=== PATIENT | male | born 1965 | race Caucasian/White ===

== ENCOUNTER 2025-01-02 09:14 | Outpatient (REF) | payer OTHER, SELFPAY ==
--- NOTE | 2025-01-02 | EMG_ITS ---
Chief complaint: Pain in upper extremities Reason for referral:M79.622 pain in right upper arm, M79.622 pain in left upper arm Referred by: Eloisa Salinas MD Procedure done: NCS and EMG of bilateral upper extremities Bilateral median and ulnar motor studies were performed. Bilateral median and ulnar mixed sensory studies, median and lateral antecubital brachial sensory studies and radial sensory studies were performed. EMG examination was performed. Findings: Right median motor distal latencies was mildly prolonged. Bilateral median mixed distal latencies were mildly prolonged. Impression: Mild bilateral median neuropathy across carpal tunnel Codin [address]62 x2 MTDD
--- OUTSIDE RECORDS SUMMARY | 2025-01-02 09:59 | XMS_ITS | Encounter Summary ---
Author Organization [facility] Address [address] [place] [address] Care Team Providers Care Gambling Box Person Name Role Phone Pcp, No Primary Care Provider Unavailabl e Encounter Details Date Type Department Care Team (Late st Contact Info) Description 06/28/2015 Scanned Document [address] [id number] Provider, Generic Social History Tobacco Use Types Packs/Day Years Used Date Smoking Tobacco: Some Days Cigarettes Smokeless Tobacco: Never Comments:No data on allscrip ts Alcohol Use Standard Drinks/Week Comments Yes 4 (1 standard drink = 0.6 oz pur e alcohol) drinking beer only on weekends Sex and Gender Information Value Date Recorded Sex Assigned at Not on file Legal Sex Male 1:18 PM EDT Gender Identity Not on file Sexual Orientation Not on file Occupation Industry Job Start Date Job End Date Not on file Not on file Not on file Not on file documented as of this encounter Plan of Treatment Not on file documented as of this encounter Visit Diagnoses Not on filedocumented in this encounter Care Teams Gambling Box Person Relationship Specialty Start Date End Date Pcp, No PCP - General General Medicine 04/25/15 documented as of this encounter
--- OUTSIDE RECORDS SUMMARY | 2025-01-02 09:59 | XMS_ITS | Encounter Summary ---
Author Organization [facility] Address [address] [place] [address] Care Team Providers Care [employer] Supervisor Name Role Phone Jim Anderson MD Primary Care Provider [phone] Encounter Details Date Type Department Care Team ([facility] st Contact Info) Description 11/20/2024 Results Follow-Up Adult Medicine [address] [phone] Jim Anderson MD [address] [place] [address] Social History Tobacco Use Types Packs/Day Years Used Date Smoking Tobacco: Every Day Cigarettes Passive Smoke Exposure: Current Smokeless Tobacco: Former Alcohol Use Standard Drinks/Week Comments No 0 (1 standard drink = 0.6 oz pur e alcohol) Housing Instability Answer Date Recorde d Are you worried that in the next 2 months you may not have stable housing? Patient declined 07/28/2024 Food Access & Nutrition Answer Date Rec orded Do you have access to a vari ety of food including fruits and vegetables? Patient declined 07/28/2024 Health Literacy Answer Date Recorded How often do you need to hav e someone help you when you read instructions, pamphlets, or other written material from your doctor or pharmacy? Patient declined 07/28/2024 Caregiver: How often do you need to have someone help you when you read instructions, pamphlets, or other written material from your doctor or pharmacy? Not on file 025 Financial Risk Answer Date Recorded How hard is it for you to pa y for the very basics like food, housing, medical care, and air conditioning / heating? Patient declined 07/28/2024 Transportation Answer Date Recorded Has the lack of transportati on kept you from meetings, work, or from getting things needed for daily living? Patient declined 07/28/2024 Has the lack of transportati on kept you from medical appointments or from getting medications? Patient declined 07/28/2024 Social Isolation Answer Date Recorded How often do you feel lonely or isolated from those around you? Patient declined 07/28/2024 Food Risk Answer Date Recorded Within the past 12 months we worried whether our food would run out before we got money to buy more. Not asked 07/28/2024 Within the past 12 months th e food we bought just didn't last and we didn't have money to get more. Never true 07/28/2024 Dependent Care Answer Date Recorded Do you need help finding or paying for care for your loved ones. For example, child support case officer or elderly care for an older adult? Patient declined 07/28/2024 Education Answer Date Recorded Do you think completing more education or training, like finishing a GED, going to college, or learning a trade, would be helpful for you? Patient declined 07/28/2024 Employment and Income Answer Date Recor ded During the last four weeks, have you been actively looking for work? Patient declined 07/28/2024 Living Situation Answer Date Recorded What is your living situation? Unrecognized valu e 07/28/2024 Sex and Gender Information Value Date Recorded Sex Assigned at Male 06/20/2024 12:01 PM EDT Legal Sex Male 10:26 AM EST Gender Identity Male 06/20/2024 12:01 PM EDT Sexual Orientation Not on file documented as of this encounter Plan of Treatment Upcoming Encounters Date Type Department Care Team (Late st Contact Info) Description 03/23/2025 8:30 AM EST Office Visit Pulmonology - [address] [place] [address] Agnieszka Beck MD [address] [place] [phone] 06/06/2025 8:30 AM EDT Office Visit Adult Medicine [address], [place] [phone] Jim Anderson MD [address] [place] [address] 11/21/2025 9:00 AM EDT Office Visit Adult Medicine [address] [phone] Jim Anderson MD [address] [place] [address] documented as of this encounter Visit Diagnoses Not on filedocumented in this encounter Additional Health Concerns Assessment Noted Time PHQ-9 Depression Total Score: 0 11/18/19 8:14 AM EDT documented as of this encounter Care Teams [employer] Supervisor Relationship Specialty Start Date End Date Jim Anderson MD [address] [place] [address] PCP - General Internal Medicine 03/03/24 documented as of this encounter
--- OUTSIDE RECORDS SUMMARY | 2025-01-02 09:59 | XMS_ITS | Clinical Summary ---
Author Organization [address] Address [address] [place] [phone] Phone Care Team Providers Care Door Repairman Name Role Phone Jim Anderson MD Primary Care Provider [phone] Allergies Active Allergy Reactions Criticality Noted Date Comments Bupropion Dermatitis,Unknown,Hives Medium 05/08/2015 Bupropion Hcl Itching 05/18/2007 zyban Medications ciclopirox (PENLAC) 8 % solution Apply topically to affected nails for 7 days. On day 7, use alcohol wipe to remove solution. Repeat process x 8 weeks. 3 Active miscellaneous medical supply [facility] CPAP Historical (HISTORICAL CPAP)- by Nasal route at bedtime. [employer]-pressure 9 Active FREESTYLE LANCETS [facility] Check daily 2 Active blood sugar diagnostic (FreeStyle Lite Strips) test strip Test daily 2 Active ibuprofen (ADVIL,MOTRIN) 800 mg tablet Take 1 tablet (800 mg total) by mouth 3 (three) times a day if needed for mild pain (pain). 60 tablet 5 Active acetaminophen (TYLENOL 8 HOUR) 650 mg 8 hr tablet Take 1 tablet (650 mg total) by mouth every 8 (eight) hours if needed for mild pain. Do not crush, chew, or split. 60 tablet 5 Active fluticasone propionate (FLONASE) 50 mcg/actuation nasal spray Administer 2 sprays into each nostril 1 (one) time each day. Shake liquid 48 g 5 Active atorvastatin (LIPITOR) 20 mg tablet Take 1 tablet (20 mg total) by mouth 1 (one) time each day. 90 tablet 2 5 Active hydroCHLOROthia zide (HYDRODIURIL) 25 mg tablet Take 1 tablet (25 mg total) by mouth 1 (one) time each day. 90 tablet 1 5 Active lisinopriL (PRINIVIL,ZESTR IL) 5 mg tablet Take 1 tablet (5 mg total) by mouth 1 (one) time each day. 90 tablet 1 5 Active omeprazole (PriLOSEC) [address] capsule Take 1 capsule (20 mg total) by mouth 1 (one) time each day. 90 capsule 1 5 Active Active Problems Problem Noted Date Diagnosed Date Morbid obesity with BMI of 4 0.0-44.9, adult ([facility] V24, [facility] V28) 02/01/2024 Grief at loss of child 02/01/2024 Overview (02/01/2024): Son committed suicide 2020 CKD (chronic kidney disease) stage 3, GFR 30-59 ml/min ([facility] V24, [facility] V28) 02/09/2022 Chronic right shoulder pain 11/19/2020 Type II diabetes mellitus wi th renal manifestations ([facility] V24, [facility] V28) 06/03/2020 H. pylori infection 12/13/2019 Morbid obesity ([facility] V24, [facility] V28) 2014 Gastroesophageal reflux disease 06/21/2012 Sleep apnea 08/16/2007 Benign essential hypertension 10/22/2006 Atopic rhinitis 10/22/2006 Overview (03/31/2024): Frequent ear infections, flonase helps helped with flonase Encounters Date Type Department Care Team Description 11/20/2024 Results Follow-Up Adult Medicine [address] [phone] Jim Anderson MD 11/20/2024 Results Follow-Up Adult Medicine [address] [place] [phone] Jim Anderosn MD 11/17/2024 8:00 AM EDT Office Visit Adult Medicine [address] [phone] Jim Anderson MD Routine physical examination (Primary Dx); Screening for malignant neoplasm of prostate; Type 2 diabetes mellitus with stage 3a chronic kidney disease, without long-term current use of insulin ([facility] V24, [facility] V28); Stage 3a chronic kidney disease ([facility] V24, [facility] V28); High cholesterol; Sore throat; Post-nasal drip from Last 3 Months Immunizations Immunization Administration Dates Next Due Influenza Quadravalent, MDCK , 0.5ml, preservative free (Flucelvax) 6mo and older 11/15/2022,12/14/2021,11/01/2019 Influenza Quadrivalent, 0.5m l, preservative free (Fluarix; FluLaval; Fluzone) ages 6mo and older (Afluria) 3yo and older 12/05/2018,11/21/2017 Influenza Quadrivalent, with preservative (Fluzone; Afluria) 6mo and older 12/30/2009 Influenza trivalent, 0.5mL, preservative free (Fluarix; FluLaval; Fluzone) ages 6mo and older (Afluria) 3 years and older 11/21/2017,12/03/2016,12/27/2015,11/03,01/18/2011,12/15/2007 Influenza trivalent, MDCK, 0 .5mL, preservative free (Flucelvax) 6mo and older 11/27/2023 Influenza trivalent, recombi nant, 0.5mL, preservative free (Flublok) 9yo and older 11/11/2024 Influenza trivalent, with pr eservative (Fluzone; Afluria) 6mo and older 11/19/2020,11/04/2011,01/18/2011,12/30,12/15/2007 Influenza, Unspecified 12/14/2021,2018,12/03/2016,12/26 Moderna SARS-CoV-2 COVID-19, mRNA, LNP-S, preservative free 05/01/2020 Pfizer (ages 12 & older) Biv alent, COVID-19 12/14/2021 Pneumococcal polysaccharide 23 valent (Pneumovax 23) 2yo and older 12/27/2015 Pneumococcal, Unspecified 12/27/2015 Td Tetanus diptheria (Tdvax) 7yo and older 09/14/2012 Td Tetanus diptheria, preser vative free (Tenivac) 7yo and older 09/14/2012 Tdap Tetanus diptheria acell ular pertussis (Boostrix; Adacel) 7yo and older 09/22/2017,05/18/2007 Zoster recombinant (Shingrix ) 19yo and older 03/12/2019,12/05/2018 Surgical History Surgery Date Site/Laterality Comments COLONOSCOPY 09/21/2017 PROCEDURE: HISTORICAL COLONOSCOPY; COMMENT: 5 mm ascending colon polyp: tubular adenoma. Medical History Medical History Date Comments Allergic rhinitis, cause unspecified 10/22/2006 DX:Allergic rhinitis, cause unspecified; COMMENT: helped with flonase Essential hypertension, benign 10/22/2006 D X:Essential hypertension, benign Morbid obesity (CMS/HCC V24, CMS/HCC V28) 12/25/2014 DX:Morbid obesity ([facility]) H. pylori infection 12/13/2019 DX:H. pylori infection Family History Medical History Relation Name Comments No Known Problems Brother x 4 health y sisters Hypertension Father seizures, [place] x 2 Diabetes Mother HTN, stroke x 2 Leukemia Other nephew No Known Problems Sister No Known Problems Son 1 adopted No Known Problems Son 2 step son No Known Problems Son 3 Depression Son 4 Lung cancer Neg Hx Relation Name Status Comments Brother Alive Father Mother Other nephew Alive Sister Alive Son 1 Alive Son 2 Alive Son 3 Alive Son 4 Social History Tobacco Use Types Packs/Day Years Used Date Smoking Tobacco: Every Day Cigarettes Passive Smoke Exposure: Current Smokeless Tobacco: Former Tobacco Cessation:Ready to Q uit: Not Asked; Counseling Given: Not Answered Alcohol Use Standard Drinks/Week Comments No 0 [...] care for your loved ones. For example, director of early childhood education or elderly care for an older adult? [...] PM EDT Sexual Orientation Not on file Obstetrics History Last Filed Vital Signs Vital Sign Reading Time Taken Comments Blood Pressure 130/72 11/17/2024 8:01 AM EDT Pulse 76 11/17/2024 8:01 AM EDT Temperature 36.5 C (97.7 F) 11/17/2024 8:01 AM EDT Respiratory Rate 16 11/17/2024 8:01 AM EDT Oxygen Saturation 96% 11/17/2024 8:01 AM EDT Inhaled Oxygen Concentration - - Weight 98.4 kg (217 lb) 11/17/2024 8:01 AM EDT Height 162.6 cm (5' 4 ) 11/17/2024 8:01 AM EDT Body Mass Index 37.25 11/17/2024 8:01 AM EDT Plan of Treatment Upcoming Encounters Date Type Department Care Team (Late st Contact Info) Description 03/23/2025 8:30 AM EST Office Visit Pulmonology - [address] [place] [phone] Agnieszka Beck MD [address] [place] [phone] 06/06/2025 8:30 AM EDT Office Visit Adult Medicine [address] [phone] Jim Anderson MD [address] [place] [phone] 11/21/2025 9:00 AM EDT Office Visit Adult [address] [phone] Jim Anderson MD [address] [place] [address] Health Maintenance Due Date Last Done Comments Diabetes: Annual Foot Exam 1976 Diabetes: Annual Retina Eye Exam 1976 Hepatitis B Vaccines (1 of 3 - 19+ 3-dose series) 1985 RSV Immunization Adult Patients (1 - Risk 50-74 years 1-dose series) 2016 Pneumococcal Vaccine: 50+ Years (2 of 2 - PCV) 12/26/2016 12/27/2015, 12/27/2015 COVID-19 Vaccine (8 - Moderna risk season) 2025 11/11/2024, 11/27/2023, 11/15/2022, Additional history exists Diabetes: Blood Sugar Control Test (HGBA1C) 05/17/2025 11/17/2024, 05/15/2024, 04/23/2023 Lung Cancer Screening (Low Dose CT) 06/22/2025 06/22/2024, 03/20/2022 Diabetes: Annual GFR (Glomerular Filtration Rate) 07/28/2025 07/28/2024, 04/23/2023 Hypertension/CHF/CAD Annual BMP Blood Test 07/28/2025 07/28/2024, 04/23/2023 Social Influencers of Health Screening 07/28/2025 07/28/2024 Diabetes: Annual Urine Albumin-Creatinine Ratio (uACR) 11/17/2025 11/17/2024, 05/15/2024, 09/21/2022 DTaP,Tdap,and Td Vaccines (5 - Td or Tdap) 09/23/2027 09/22/2017, 09/14/2012, 09/14/2012, Additional history exists Colorectal Cancer Screening: Colonoscopy 09/30/2028 10/01/2023 Cholesterol Screening (Lipid Panel) 07/28/2029 07/28/2024, 04/23/2023 HIV Screening Completed 07/22/2013 Hepatitis C Screening Completed 07/22/2013 Zoster Vaccines Completed 03/12/2019, 12/05/2018 Influenza Vaccine Completed 11/11/2024, , 11/15/2022, Additional history exists Depression Screening Completed 11/17/2024 HIB Vaccines Aged Out No longer eligi ble based on patient's age to complete this topic HPV Vaccines Aged Out No longer eligi ble based on patient's age to complete this topic Hepatitis A Vaccines Aged Out No long er eligible based on patient's age to complete this topic IPV Vaccines Aged Out No longer eligi ble based on patient's age to complete this topic MMR Vaccines Aged Out No longer eligi ble based on patient's age to complete this topic Meningococcal ACWY Vaccine Aged Out N o longer eligible based on patient's age to complete this topic Meningococcal B Vaccine Aged Out No l onger eligible based on patient's age to complete this topic RSV Immunization Patients Under 20 months Aged Out No longer eligible based on patient's age to complete this topic Varicella Vaccines Aged Out No longer eligible based on patient's age to complete this topic Procedures Procedure Name Priority Date/Time Associated Diagnosis Comments CBC WITH AUTO DIFFERENTIAL Routine 11/17/2024 8:47 AM EDT Routine physical examination CBC AND DIFFERENTIAL Routine 11/17/2024 8:47 AM EDT Routine physical examination HEMOGLOBIN A1C Routine 11/17/2024 8:47 AM EDT Type 2 diabetes mellitus with stage 3a chronic kidney disease, without long-term current use of insulin ([facility] V24, [facility] V28) MICROALBUMIN CREATININE URINE RATIO Routine 11/17/2024 8:47 AM EDT Type 2 diabetes mellitus with stage 3a chronic kidney disease, without long-term current use of insulin ([facility] V24, [facility] V28) PROSTATE SPECIFIC ANTIGEN SCREEN Routine 11/17/2024 8:47 AM EDT Screening for malignant neoplasm of prostate COMPREHENSIVE METABOLIC PANEL Routine 07/28/2024 11:21 AM EDT Type 2 diabetes mellitus with other diabetic kidney complication, without long-term current use of insulin ([facility] V24, [facility] V28) Benign essential hypertension Stage 3 chronic kidney disease, unspecified whether stage 3a or 3b CKD ([facility] V24, [facility] V28) Encounter for long-term (current) use of medications LIPID PANEL WITH REFLEX TO DIRECT LDL Routine 07/28/2024 11:21 AM EDT Type 2 diabetes mellitus with other diabetic kidney complication, without long-term current use of insulin ([facility] V24, [facility] V28) High cholesterol CT LUNG SCREENING Routine 06/22/2024 10: 10 AM EDT Encounter for screening for malignant neoplasm of respiratory organs Nicotine dependence, cigarettes, uncomplicated COLONOSCOPY Routine 10/01/2023 HEPATITIS C SCREENING Routine 07/22/2013 HIV SCREENING Routine 07/22/2013 from Last 3 Months or Most Recently Relevant to Health Maintenance Results * Prostate specific antigen screen (11/17/2024 8:47 AM EDT) PSA 1.41 0.00 - 4.00 ng/mL LAB CHEMISTRY METHOD 11/17/2024 11:02 AM EDT [facility] Blood Venous blood specimen / Unknown Venipuncture / Unknown 11/17/2024 8:47 AM EDT 11/17/2024 8:47 AM EDT Narrative [facility] - 11/17/2024 11:02 AM EDT The Siemens Advia Centaur Chemiluminescent Immunoassay is used. Results obtained with different assay methods or kits cannot be used interchangeably. Results cannot be interpreted as absolute evidence of the presence or absence of malignant disease. us Jim Anderson MD LAB BLOOD ORDERABLES Final Resu lt [facility] [address] [place] [address], * (ABNORMAL) CBC auto differential (11/17/2024 8:47 AM EDT) WBC 7.1 4.8 - 10.8 K/mcL LAB HEMETOLOGY METHOD 11/17/2024 10:56 AM EDT [facility] RBC 4.50 4.50 - 5.50 M/mcL LAB HEMETOLOGY METHOD 11/17/2024 10:56 AM EDT [facility] Hemoglobin 13.8 13.5 - 17.5 g/dL LAB HEMETOLOGY METHOD 11/17/2024 10:56 AM [facility] Hematocrit 41.2(L) 42.0 - 54.0 % LAB HEMETOLOGY METHOD 11/17/2024 10:56 AM [facility] MCV 91.6 79.0 - 98.0 FL LAB HEMETOLOGY METHOD 11/17/2024 10:56 AM [facility] MCH 30.7 27.0 - 32.0 pcg LAB HEMETOLOGY METHOD 11/17/2024 10:56 AM [facility] MCHC 33.5 32.0 - 37.0 g/dL LAB HEMETOLOGY METHOD 11/17/2024 10:56 AM [facility] RDW 12.9 11.0 - 15.0 % LAB HEMETOLOGY METHOD 11/17/2024 10:56 AM [facility] Platelets 197 130 - 400 K/mcL LAB HEMETOLOGY METHOD 11/17/2024 10:56 AM [facility] MPV 10.6 7.0 - 11.0 FL LAB HEMETOLOGY METHOD 11/17/2024 10:56 AM [facility] NRBC 0.0 <1.0 % LAB HEMETOLOGY METHOD 11/17/2024 10:56 AM [facility] NRBC Absolute 0.00 <0.10 K/mcL LAB HEMETOLOGY METHOD 11/17/2024 10:56 AM [facility] Neutrophils Relative 59.2 % LAB HEMETOLOGY METHOD 11/17/2024 10:56 AM [facility] Lymphocytes Relative 24.6 % LAB HEMETOLOGY METHOD 11/17/2024 10:56 AM [facility] Monocytes Relative 9.1 % LAB HEMETOLOGY METHOD 11/17/2024 10:56 AM [facility] Eosinophils Relative 6.1 % LAB HEMETOLOGY METHOD 11/17/2024 10:56 AM EDT [facility] Basophils Relative 0.7 % LAB HEMETOLOGY METHOD 11/17/2024 10:56 AM EDT [facility] Immature Granulocytes Relative 0.3 % LAB HEMETOLOGY METHOD 11/17/2024 10:56 AM EDT [facility] Neutrophils Absolute 4.19 1.50 - 7.00 K/mcL LAB HEMETOLOGY METHOD 11/17/2024 10:56 AM EDT [facility] Lymphocytes Absolute 1.74 1.00 - 5.00 K/mcL LAB HEMETOLOGY METHOD 11/17/2024 10:56 AM EDT [facility] Monocytes Absolute 0.64 0.20 - 1.00 K/mcL LAB HEMETOLOGY METHOD 11/17/2024 10:56 AM EDT [facility] Eosinophils Absolute 0.43 0.00 - 0.50 K/mcL LAB HEMETOLOGY METHOD 11/17/2024 10:56 AM EDT [facility] Basophils Absolute 0.05 0.00 - 0.20 K/mcL LAB HEMETOLOGY METHOD 11/17/2024 10:56 AM EDT [facility] Immature Granulocytes Absolute 0.02 0.00 - 0.03 K/mcL LAB HEMETOLOGY METHOD 11/17/2024 10:56 AM EDT [facility] Blood Venous blood specimen / Unknown Venipuncture / Unknown 11/17/2024 8:47 AM EDT 11/17/2024 8:47 AM EDT us Jim Anderson MD LAB BLOOD ORDERABLES Final Resu lt [facility] [address] [place] [address], * Microalbumin creatinine urine ratio (11/17/2024 8:47 AM EDT) Creatinine, Urine 153.0 mg/dL LAB CHEMISTRY METHOD 11/17/2024 11:58 AM EDT [facility] Microalb, Ur 7.8 0.0 - 29.0 mg/L LAB CHEMISTRY METHOD 11/17/2024 11:58 AM EDT [facility] Microalb/Creat Ratio 5 <30 mg/g creat LAB CHEMISTRY METHOD 11/17/2024 11:58 AM EDT [facility] Urine Urine specimen obtained by clean catch procedure / Unknown Non-blood Collection / Unknown 11/17/2024 8:47 AM EDT 11/17/2024 8:47 AM EDT us Jim Anderson MD LAB URINE ORDERABLES Final Resu lt Performing Organization Address City/[facility]/ZIP Co de Phone Number [facility] [address] [place] [address], [place] [phone] * Hemoglobin A1c (11/17/2024 8:47 AM EDT) Hemoglobin A1C 6.1 <6.5 % LAB CHEMISTRY METHOD 11/17/2024 1:15 PM EDT [facility] Mean Bld Glu Estim. 128 mg/dL LAB CHEMISTRY METHOD 11/17/2024 1:15 PM EDT [facility] Blood Venous blood specimen / Unknown Venipuncture / Unknown 11/17/2024 8:47 AM EDT 11/17/2024 8:47 AM EDT us Jim Anderson MD LAB BLOOD ORDERABLES Final Resu lt Performing Organization Address City/[facility]/ZIP Co de Phone Number [facility] [address] [place] [address], [place] [phone] * (ABNORMAL) Lipid panel with reflex to direct LDL (07/28/2024 11:21 AM EDT) Cholesterol 129 0 - 200 mg/dL LAB CHEMISTRY METHOD 07/28/2024 2:59 PM EDT [facility] Triglycerides 129 0 - 150 mg/dL LAB CHEMISTRY METHOD 07/28/2024 2:59 PM EDT [facility] HDL 33(L) >=40 mg/dL LAB CHEMISTRY METHOD 07/28/2024 2:59 PM EDT [facility] LDL Calculated 70 0 - 100 mg/dL LAB CHEMISTRY METHOD 07/28/2024 2:59 PM EDT [facility] VLDL Cholesterol Martinez 25.8 mg/dL LAB CHEMISTRY METHOD 07/28/2024 2:59 PM EDT [facility] Non HDL Chol. (LDL+VLDL) 96 <145 mg/dL LAB CHEMISTRY METHOD 07/28/2024 2:59 PM EDT [facility] Chol/HDL Ratio 3.9 0.0 - 4.4 LAB CHEMISTRY METHOD 07/28/2024 2:59 PM EDT [facility] Blood Venous blood specimen / Unknown Venipuncture / Unknown 07/28/2024 11:21 AM EDT 07/28/2024 11:21 AM EDT us Jim Anderson MD LAB BLOOD ORDERABLES Final Resu lt [facility] [address] [place] [address], * (ABNORMAL) Comprehensive metabolic panel (07/28/2024 11:21 AM EDT) [facility] Sodium 134 133 - 145 mmol/L LAB CHEMISTRY METHOD 07/28/2024 2:56 PM EDT [facility] Potassium 4.2 3.5 - 5.5 mmol/L LAB CHEMISTRY METHOD 07/28/2024 2:56 PM EDT [facility] Chloride 102 96 - 110 mmol/L LAB CHEMISTRY METHOD 07/28/2024 2:56 PM [facility] CO2 27 21 - 32 mmol/L LAB CHEMISTRY METHOD 07/28/2024 2:56 PM [facility] Anion Gap 5 3 - 11 LAB CHEMISTRY METHOD 07/28/2024 2:56 PM [facility] Glucose 91 70 - 100 mg/dL LAB CHEMISTRY METHOD 07/28/2024 2:56 PM [facility] BUN 29(H) 5 - 25 mg/dL LAB CHEMISTRY METHOD 07/28/2024 2:56 PM [facility] Creatinine 1.40(H) 0.70 - 1.30 mg/dL LAB CHEMISTRY METHOD 07/28/2024 2:56 PM [facility] eGFR 59(L) >=60 mL/min/1. 73m2 LAB CHEMISTRY METHOD 07/28/2024 2:56 PM [facility] Comment:Calculation based on the Chronic Kidney Disease Epidemiology Collaboration (CKD-EPI) equation refit without adjustment for race. BUN/Creatinine Ratio 20.7 LAB CHEMISTRY METHOD 07/28/2024 2:56 PM [facility] Calcium 9.1 8.5 - 10.5 mg/dL LAB CHEMISTRY METHOD 07/28/2024 2:56 PM [facility] AST (SGOT) 18 10 - 42 unit/L LAB CHEMISTRY METHOD 07/28/2024 2:56 PM [facility] ALT (SGPT) 27 10 - 60 unit/L LAB CHEMISTRY METHOD 07/28/2024 2:56 PM [facility] Alkaline Phosphatase 99 42 - 121 unit/L LAB CHEMISTRY METHOD 07/28/2024 2:56 PM [facility] Total Protein 7.4 6.0 - 8.0 g/dL LAB CHEMISTRY METHOD 07/28/2024 2:56 PM [facility] Albumin 3.9 3.2 - 5.0 g/dL LAB CHEMISTRY METHOD 07/28/2024 2:56 PM EDT [facility] Total Bilirubin 0.6 0.0 - 1.4 mg/dL LAB CHEMISTRY METHOD 07/28/2024 2:56 PM EDT [facility] Blood Venous blood specimen / Unknown Venipuncture / Unknown 07/28/2024 11:21 AM EDT 07/28/2024 11:21 AM EDT us Jim Anderson MD LAB BLOOD ORDERABLES Final Resu lt [facility] [address] [place] [address], * CT Lung Screening (06/22/2024 10:10 AM EDT) Anatomical Region Laterality Modality Chest Computed Tomogra phy 06/22/2024 10:4 0 AM EDT Impressions 06/22/2024 10:56 AM EDT No suspicious mass or nodule. No suspicious interval change. LUNG RADS: Lung-RADS 1: NEGATIVE S Modifier (Significant or Potentially Significant Findings): None present No suspicious nonpulmonary findings. RECOMMENDATIONS: [address] low dose [address] -------- FINAL REPORT -------- Dictated By: Jayro Otero Dictated Date: 06/22/2024 10:40 ET Assigned Physician: Jayro Otero Reviewed and Electronically Signed By: Jayro Otero Signed Date: 06/22/2024 10:56 ET Workstation ID: [id number] Transcribed By: Self Edit Transcribed Date: 06/22/2024 10:40 ET Narrative 06/22/2024 10:56 AM EDT EXAMINATION: CT CHEST WITHOUT CONTRAST LUNG CANCER SCREENING, LOW DOSE CLINICAL INFORMATION: Lung cancer screening. Current smoker. COMPARISON: Portions of previous 06/27/23 TECHNIQUE: Multidetector CT. Examination of the chest. Examination of the chest without IV contrast. Reformatting in the coronal and sagittal planes. Device: Ancestry VCT DLP: 158 mGy-cm CTDI: 4.83 Dose optimization was performed including the use of low-dose iterative reconstruction technique with automatic exposure control based on patient size. Type of contrast: None Volume of IV contrast: None Volume of contrast discarded: 0 mL FINDINGS: LUNG: There are minor secretions along the left side of the trachea. LUNG NODULES: There are no suspicious nodules or masses. OTHER PULMONARY: There are low lung volumes with some reticular and groundglass opacities in the dependent lower lung zones. No honeycomb formation. Thin-walled cyst in the middle lobe does not require any specific imaging follow-up. MEDIASTINUM: There are some prominent but unchanged mediastinal lymph nodes. No suspicious abnormality esophagus. CARDIAC: The heart is not enlarged. No pericardial fluid or thickening There are moderate to marked coronary calcifications and/or coronary stents. VASCULAR: There is no thoracic aortic aneurysm. The main pulmonary artery is normal caliber PLEURA: There is no pleural fluid or pneumothorax AXILLA/CHEST WALL: Unchanged axillary lymph nodes. No suspicious chest wall mass. VISUALIZED UPPER ABDOMEN: No suspicious abnormality on limited assessment of the visualized upper abdomen. MUSCULOSKELETAL: No suspicious focal bony lesion demonstrated. Procedure Note Jayro Otero MD - 06/22/2024 EXAMINATION: CT CHEST WITHOUT CONTRAST LUNG CANCER SCREENING, LOW DOSE CLINICAL INFORMATION: Lung cancer screening. Current smoker. COMPARISON: Portions of previous 06/27/23 TECHNIQUE: Multidetector CT. Examination of the chest. Examination of the chest without IV contrast. Reformatting in the coronal and sagittal planes. Device: Lightspe[employer]ovi VCT DLP: 158 mGy-cm CTDI: 4.83 Dose optimization was performed including the use of low-dose iterativereconstruction technique with automatic exposure control based on patientsize. Type of contrast: None Volume of IV contrast: None Volume of contrast discarded: 0 mL FINDINGS: LUNG: There are minor secretions along the left side of the trachea. LUNG NODULES: There are no suspicious nodules or masses. OTHER PULMONARY: There are low lung volumes with some reticular andgroundglass opacities in the dependent lower lung zones. No honeycombformation. Thin-walled cyst in the middle lobe does not require any specific imagingfollow- up. MEDIASTINUM: There are some prominent but unchanged mediastinal lymphnodes. No suspicious abnormality esophagus. CARDIAC: The heart is not enlarged. No pericardial fluid or thickening There are moderate to marked coronary calcifications and/or coronarystents. VASCULAR: There is no thoracic aortic aneurysm. The main pulmonary arteryis normal caliber PLEURA: There is no pleural fluid or pneumothorax AXILLA/CHEST WALL: Unchanged axillary lymph nodes. No suspicious chestwall mass. VISUALIZED UPPER ABDOMEN: No suspicious abnormality on limited assessmentof the visualized upper abdomen. MUSCULOSKELETAL: No suspicious focal bony lesion demonstrated. IMPRESSION: No suspicious mass or nodule. No suspicious interval change. LUNG RADS: Lung-RADS 1: NEGATIVE S Modifier (Significant or Potentially Significant Findings): Nonepresent No suspicious nonpulmonary findings. RECOMMENDATIONS: 12 month screening low dose CT -------- FINAL REPORT -------- Dictated By: Jayro Otero Dictated Date: 06/22/2024 10:40 ET Assigned Physician: Jayro Otero Reviewed and Electronically Signed By: Jayro Otero Signed Date: 06/22/2024 10:56 ET Workstation ID: [id number] Transcribed By: Self Edit Transcribed Date: 06/22/2024 10:40 ET Neisha Grover MD IMG CT PROCEDURES Final Result * Colonoscopy (10/01/2023) Colonoscopy no interpretation , abstracted Anatomical Region Laterality Modality Other Historical Provider HEALTH MAINTENANCE Final Result * HIV Screening (07/22/2013) Pathologist [facility] HIV Screening abstracted Historical Provider HEALTH MAINTENANCE Final Result * Hepatitis C Screening (07/22/2013) Hepatitis C Screening abstracted Historical Provider HEALTH MAINTENANCE Final Result from Last 3 Months or Most Recently Relevant to Health Maintenance Insurance [employer] Care Teams Door Repairman Relationship Specialty Start Date End Date Jim Anderson MD [address] [place] [phone] PCP - General Internal Medicine 03/03/24
--- OUTSIDE RECORDS SUMMARY | 2025-01-02 10:00 | XMS_ITS | Encounter Summary ---
Author Organization [facility] Address [address] [place] [address] Care Team Providers Care Top Lift Nailer Name Role Phone Jim Anderson MD Primary Care Provider [phone] Encounter Details Date Type Department Care Team ([facility] st Contact Info) Description 11/20/2024 Results Follow-Up Adult Medicine [address] [phone] Jim Anderson MD [address] [place] [address] Social History Tobacco Use Types Packs/Day Years [...] for your loved ones. 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 [...] 8:30 AM EST Office Visit Pulmonology - [address] [place] [address] Agnieszka Beck MD [address] [place] [phone] 06/06/2025 8:30 AM EDT Office Visit Adult Medicine [address], [place] [phone] Jim Anderson MD [address] [place] [address] 11/21/2025 9:00 AM EDT Office Visit Adult Medicine [address] [phone] Jim Anderson MD [address] [place] [address] documented as of this encounter Visit Diagnoses Not on filedocumented in this encounter Additional Health Concerns Assessment Noted Time PHQ-9 Depression Total Score: 0 11/18/19 8:14 AM EDT documented as of this encounter Care Teams Top Lift Nailer Relationship Specialty Start Date End Date Jim Andesron MD [address] [place] [address] PCP - General Internal Medicine 03/03/24 documented as of this encounter
--- OUTSIDE RECORDS SUMMARY | 2025-01-02 10:00 | XMS_ITS | Clinical Summary ---
Author Organization [facility] Address [address] [place] [address] Care Team Providers Care Process Steward Name Role Phone Pcp, No Primary Care Provider Unavailabl e Allergies Active Allergy Reactions Criticality Noted Date Comments Bupropion Hcl Dermatitis 06/28/2015 Bupropion Unknown/Patient and Family Unable to Define Medium 05/08/2015 Medications Respiratory Therapy Supplies Device 9 cm by Nasal route at bedtime. [employer]/ nasal mask Active hydrochlorothia zide (MICROZIDE) 12.5 MG capsule Take 1 Cap by mouth every morning. 04/22/2015 Active fluticasone (FloNASE) 50 mcg/spray nasal spray Use 2 sprays in each nostril daily. 01/07/2015 Active OMEprazole (PriLOSEC) 20 MG capsule Take 1 Cap by mouth daily. 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) 06/28/2015 Morbid obesity 12/25/2014 Essential hypertension 05/31/2014 Tobacco use 04/03/2014 Gastroesophageal reflux disease 06/21/2012 Sleep apnea 08/16/2007 Benign essential hypertension 10/22/2006 Atopic rhinitis 10/22/2006 Overview (06/28/2015): Overview: helped with flonase Immunizations Immunization Administration Dates Next Due Influenza (AFLURIA/FLUZONE) Inactivated/Split Quadrivalent with Preservative IM 11/04/2011,01/18/2011,12/30/2009,2007 TD Preservative Free 09/14/2012 Tdap 05/18/2007 Social History Tobacco Use Types Packs/Day Years Used Date Smoking Tobacco: Some Days Cigarettes Smokeless Tobacco: Never Tobacco Cessation:Ready to Q uit: Yes; Counseling Given: Yes Comments:No data on allscripts Alcohol Use Standard Drinks/Week Comments Yes 4 [...] file Not on file Not on file Last Filed Vital Signs Vital Sign Reading Time Taken Comments Blood Pressure 122/80 06/11/2016 8:31 AM EDT Pulse 72 06/11/2016 8:31 AM EDT Temperature - - Respiratory Rate 12 06/11/2016 8:31 AM EDT Oxygen Saturation - - Inhaled Oxygen Concentration - - Weight 106 kg (233 lb) 06/11/2016 8:31 AM EDT Height 167.6 cm (5' 6 ) 06/11/2016 8:31 AM EDT Body Mass Index 37.61 06/11/2016 8:31 AM EDT Plan of Treatment Health Maintenance Due Date Last Done Comments Hepatitis C Virus Screening 1966 HIV Screening 08/04/1979 Hepatitis B Vaccines (1 of 3 - 19+ 3-dose series) 1985 Pneumococcal Vaccines 50+ (1 of 1 - PCV) 2016 Zoster (Shingles) Vaccine (1 of 2) 2016 DTaP/Tdap/Td Vaccines (3 - Td or Tdap) 09/14/2022, 05/18/2007 COVID-19 Vaccine (1 - 2023- season) 2024 RSV Vaccine 50 years and old er and Patients (1 - 1-dose 75+ series) 2041 Care Teams Process Steward Relationship Specialty Start Date End Date Pcp, No PCP - General General Medicine 04/25/15
== END 2025-01-02 09:15 | disposition home or self-care (01) ==
LOC: HO.NEURO 09:14
PROVIDERS: PCP Internal Medicine; Visit Provider Internal Medicine Rheumatology
DX: M79.621 Pain in right upper arm (principal); M79.622 Pain in left upper arm
CPT/HCPCS: 95886; 95913

== ENCOUNTER → 2025-01-02 09:19 | Outpatient (BNV) | payer OTHER, SELFPAY | PROVIDERS: PCP Internal Medicine; Visit Provider Psychiatry & Neurology Neurology | DX: G56.03 Carpal tunnel syndrome, bilateral upper limbs (principal) | CPT/HCPCS: 95886; 95912 ==